=== PATIENT | female | born 1990 | race Two or more races ===

== ENCOUNTER 2018-11-30 13:55 | Emergency (ER) | payer MEDICAID ==
[~2018-11-30] VITALS: Ht 167.6 cm; Wt 145.1 kg
[~2018-11-30 13:55] MED LIST: FERR-7 PO; PREN-145 OR
[2018-11-30 14:28] LABS: Basophils # (auto) 0.1 uL; Eosinophils # (auto) 0.2 uL; Eosinophils % (auto) 1.2 % (0.0-7.0); Hematocrit 38.2 % (36.0-46.0); Lymphocytes # (auto) 3.2 uL
[2018-11-30 14:30] LABS: Basophils % (auto) 0.9 % (0.0-2.0); Hemoglobin 12.1 g/dL (12.2-16.2); Lymphocytes % (auto) 23.4 % (10.0-50.0); Mean Corpuscular Hemoglobin 24.7 pg (28.0-32.0); Mean Corpuscular Hgb Conc. 31.6 g/dL (32.0-36.0); Monocytes # (auto) 0.9 uL; Monocytes % (auto) 6.8 % (0.0-12.0); Neutrophils # (auto) 9.1 uL; Neutrophils % (auto) 67.7 % (37.0-80.0); Nucleated Red Blood Cells % 0.1 %; Platelet Count (auto) 632 10^3/uL (140-450); Red Blood Cells 4.89 10^6/uL (4.0-5.20); Red Cell Distribution Width 18.2 % (11.8-14.3); White Blood Cell 13.5 10^3/uL (4.4-10.8)
[2018-11-30 14:43] LABS: Albumin 3.8 g/dL (3.4-5.0); Calcium 9.1 mg/dL (8.5-10.1); Potassium 4.1 mmol/L (3.5-5.1)
[2018-11-30 14:48] LABS: BUN/Creatinine Ratio 16.2; Bilirubin, Total 0.2 mg/dL (0.2-1.0); Total Protein 8.7 g/dL (6.4-8.2)
[2018-11-30 16:44] LABS: Urine Bacteria NONE SEEN /hpf (None Seen); Urine Blood Negative /uL (Negative); Urine Specific Gravity 1.022 (1.001-1.035); Urine WBC 2 /hpf (0 - 5)
[2018-11-30 20:09] VITALS: BP 131/72
[2018-11-30] MEDS ORDERED: ONDANSETRON ODT 4 MG TAB PO ONE (21:00)
[2018-11-30] MEDS ORDERED: LACTULOSE 20Gm/30ML SOLN PO ONE (21:00)
== END 2018-11-30 21:35 | disposition home or self-care (01) ==
LOC: ER 13:59
DX: K59.00 Constipation, unspecified (principal); Z88.1 Allergy status to other antibiotic agents
CPT/HCPCS: 36415; 74176; 80053; 81001; 81025; 82150; 83690; 85025; 99284; Q0162

== ENCOUNTER 2019-08-10 19:59 | Emergency (ER) | payer MEDICAID ==
[~2019-08-10] VITALS: Ht 167.6 cm; Wt 145.1 kg
[2019-08-10 22:27] LABS: Basophils # (auto) 0.1 uL; Basophils % (auto) 0.3 % (0.0-2.0); Eosinophils # (auto) 0 uL; Eosinophils % (auto) 0.1 % (0.0-7.0); Hematocrit 35.1 % (36.0-46.0); Hemoglobin 11.4 g/dL (12.2-16.2); Lymphocytes # (auto) 0.8 uL; Lymphocytes % (auto) 4.9 % (10.0-50.0); Mean Corpuscular Hemoglobin 27.3 pg (28.0-32.0); Mean Corpuscular Hgb Conc. 32.6 g/dL (32.0-36.0); Mean Corpuscular Volume 83.7 fL (80.0-100.0); Monocytes # (auto) 0.5 uL; Monocytes % (auto) 3.1 % (0.0-12.0); Neutrophils # (auto) 15.7 uL; Neutrophils % (auto) 91.6 % (37.0-80.0); Platelet Count (auto) 544 10^3/uL (140-450); Red Blood Cells 4.19 10^6/uL (4.0-5.20); Red Cell Distribution Width 16.4 % (11.8-14.3); White Blood Cell 17.1 10^3/uL (4.4-10.8)
[2019-08-10] MEDS ORDERED: SODIUM CHLORIDE 0.9% 1,000 ML IV ONE (22:30)
[2019-08-10 22:36] LABS: Urine Bacteria FEW /hpf (None Seen); Urine Blood Negative /uL (Negative); Urine Mucus FEW (None Seen); Urine WBC 5 /hpf (0 - 5)
[2019-08-10 22:43] LABS: Albumin 2.7 g/dL (3.4-5.0); BUN/Creatinine Ratio 10.3; Calcium 8.6 mg/dL (8.5-10.1); Potassium 3.9 mmol/L (3.5-5.1)
[2019-08-10 22:46] LABS: Bilirubin, Total 0.3 mg/dL (0.2-1.0); Total Protein 7.9 g/dL (6.4-8.2)
[2019-08-10] MEDS ORDERED: MORPHINE SULFATE 4 MG/ML SYR/VIAL ONE (22:53)
[2019-08-10] MEDS ORDERED: ONDANSETRON HCL 4 MG/2 ML VIAL ONE (22:53)
[2019-08-10] MEDS ORDERED: ONDANSETRON HCL 4 MG/2 ML VIAL IV ONE (23:15)
[2019-08-10] MEDS ORDERED: cefTRIAXone 1GM/50ML D5W 50 ML IV ONE (23:30)
[2019-08-11] VITALS: BP 109/44
[2019-08-11] MEDS ORDERED: cefTRIAXone SOD 1,000 MG VL ONE (02:00)
[2019-08-11] MEDS ORDERED: LIDOCAINE 2% (LOCAL ANESTH.) PF 5ml SDV ONE (02:01)
== END 2019-08-11 01:03 | disposition home or self-care (01) ==
LOC: ER 20:07
DX: O99.612 Diseases of the digestive system complicating pregnancy, second trimester (principal); O21.9 Vomiting of pregnancy, unspecified; K52.89 Other specified noninfective gastroenteritis and colitis; Z88.1 Allergy status to other antibiotic agents; Z79.899 Other long term (current) drug therapy; Z3A.15 15 weeks gestation of pregnancy
CPT/HCPCS: 36415; 76805; 80053; 81001; 84702; 85025; 87804; 96361; 96365; 96375; 99284; J0696; J2001; J2270; J2405; J7030

== ENCOUNTER 2021-10-31 18:31 | Emergency (ER) | payer MEDICAID ==
[~2021-10-31] VITALS: Ht 167.6 cm; Wt 167.8 kg
[2021-10-31 18:34] VITALS: BP 137/97
[2021-10-31] MEDS ORDERED: NAP500T PO (22:06)
== END 2021-10-31 22:12 | disposition home or self-care (01) ==
LOC: ER 18:33
DX: S90.31XA Contusion of right foot, initial encounter (principal); X58.XXXA Exposure to other specified factors, initial encounter; Y93.89 Activity, other specified; Y92.89 Other specified places as the place of occurrence of the external cause; Y99.8 Other external cause status
CPT/HCPCS: 73630

== ENCOUNTER 2023-12-09 08:51 | Emergency (ER) | payer MEDICAID ==
[~2023-12-09] VITALS: Ht 167.6 cm; Wt 150.7 kg
[~2023-12-09 08:51] MED LIST changes: +NAP500T PO
[2023-12-09] MEDS ORDERED: CYCL-837 PO (11:30)
[2023-12-09] MEDS ORDERED: MELO7.5T7 PO (11:30)
[2023-12-09 11:34] VITALS: BP 162/90; PULSE 97; RESP 20; TEMP 97.2; O2SAT 100
== END 2023-12-09 11:37 | disposition home or self-care (01) ==
LOC: ER 08:51
DX: M54.12 Radiculopathy, cervical region (principal); Z88.6 Allergy status to analgesic agent